=== PATIENT | female | born 1975 | race Caucasian/White ===

== ENCOUNTER 2023-03-05 15:25 | Emergency (ER) | payer BC, SELFPAY ==
--- NOTE | ~2023-03-05 | US_ITS ---
EXAMINATION: US right upper quadrant DATE: 03/05/2023 16:31 INDICATION: N/V, epigastric pain TECHNIQUE: Multiple grayscale and Doppler ultrasound images of the right upper quadrant were obtained . COMPARISON: None available. FINDINGS: The visualized portions of the pancreas are normal. The liver is normal size with increased echogenicity and normal echotexture. No surface nodularity. Normal hepatopetal flow in the main port al vein. The gallbladder is normal with no abnormal wall thickening, pericholecystic fluid or stones. The common bile duct measures 4 mm. There was no sonographic Metcalf sign. IMPRESSION: Echogenic liver, most commonly due to steatosis but also can be seen with hepatitis and fibrosis. Reviewed, dictated and finalized at location K. IMPRESSION: Echogenic liver, most commonly due to steatosis but also can be seen with hepat itis and fibrosis.
--- NOTE | ~2023-03-05 | CT_ITS ---
EXAMINATION: CT abdomen pelvis w con DATE: 03/05/2023 18:15 INDICATION: epigastric pain TECHNIQUE: Computed tomography (CT) of the abdomen and pelvis was performed with 100 mL Omnipaque-350 intravenous contrast. Automated exposure control and iterative reconstruction technique were employe d. The dose-length product was 1566.58 mGy-cm. COMPARISON: None. FINDINGS: Lower thorax: Unremarkable Liver: Normal. Biliary/Gallbladder: The gallbladder is distended. No wall thickening or pericholecystic fluid. Mild fat stranding at the gallbladder fossa, adjacent to the gallbladder neck. Gallstone at the gallbladde r neck. No bile duct dilation. Pancreas: No mass or duct dilation. Spleen: Normal. Adrenals:No mass. Kidneys: No mass, stone, or hydronephrosis. GI tract: Mild distal esophageal and antral wall edema. No small or large bowel dilation. Normal appe ndix. Mild diverticulosis without diverticulitis. Mesentery/Peritoneum: No ascites, mass, or free air. Retroperitoneum: No mass. Pelvis: Pelvic organs are within normal limits. Soft Tissues: Soft tissues and body wall unremarkable. Bones: No acute osseous finding. IMPRESSION: Esophagitis/gastritis. Gallbladder hydrops with cholelithiasis and mild inflammatory change surroundi ng the gallbladder neck. Reviewed, dictated and finalized at location K. IMPRESSION: Esophagitis/gastritis. Gallbladder hydrops with cholelithiasis and mild inflamm atory change surrounding the gallbladder neck.
[2023-03-05 15:27] VITALS: BP 150/75; PULSE 79; RESP 17; TEMP 36.7; O2SAT 99
--- NOTE | 2023-03-05 15:47 | PC.NURSE ---
pt unable to provide urine sample at this time. pt declining straight cath.
[2023-03-05 15:55] LABS: Basophils Percent Auto 0.3 % (0.2-1.2); Eosinophils Absolute Auto 0.1 K/mm3 (0-0.3); Eosinophils Percent Auto 0.5 % (0-4.4); Hematocrit 39.5 % (37.0-47.0); Hemoglobin 13.4 g/dL (12.0-15.0); Immature Granulocyte Absolute 0.02 K/mm3 (0.00-0.031); Immature Granulocyte Percent A 0.2 % (0-0.5); Lymphocytes Percent Auto 13.4 % (18.3-44.2); Mean Corpuscular HGB Conc 33.9 g/dl (32-36); Mean Corpuscular Hemoglobin 30.9 pg (26-34); Mean Corpuscular Volume 91.2 fl (80-100); Mean Platelet Volume 10.7 fl (7.4-10.4); Monocytes Absolute Auto 0.8 K/mm3 (0.1-0.6); Monocytes Percent Auto 7.9 % (2.6-8.5); Neutrophils Absolute Auto 7.6 K/mm3 (1.3-6.7); Neutrophils Percent Auto 77.7 % (45.5-73.1); Platelet Count Result 195 k/mm3 (150-375); Red Blood Count 4.33 M/mm3 (4.2-5.4); Red Cell Distribution Width 13.2 % (11.5-14.5); White Blood Count 9.7 K/mm3 (4.5-10.0)
[2023-03-05 16:03] LABS: Alanine Aminotransferase 111 U/L (6-35); Albumin Level 4.4 g/dL (3.5-5.1); Alkaline Phosphatase 59 U/L (38-126); Anion Gap 6 mmol/L (8-16); Aspartate Amino Transferase 79 U/L (14-36); Bilirubin,Total 0.5 mg/dL (0.2-1.3); Blood Urea Nitrogen 14 mg/dL (7-17); Calcium 9.5 mg/dL (8.4-10.2); Carbon Dioxide 34 mmol/L (22-30); Chloride 98 mmol/L (98-107); Estimated CRCL calculation 104 ml/min; Estimated Glomerular Filt Rate > 60; Glucose 115 mg/dL (65-110); Lipase 69 U/L (23-300); Sodium 138 mmol/L (137-145)
--- NOTE | 2023-03-05 16:05 | ECG_ITS ---
Measurements Intervals [place] Rate: 65 P: 34 RI: 181 QRS: 28 QRSD: 141 T: -4 QT: 435 QTc: 453 Interpretive Statements SINUS RHYTHM RIGHT BUNDLE BRANCH BLOCK LOW-VOLTAGE QRS IN PRECORDIAL LEADS ABNORMAL ECG NO PREVIOUS ECG AVAILABLE FOR COMPARISON Electronically Signed On 03-05-2023 17:22:22 CDT by Jorge Sepulveda M.D.
--- NOTE | 2023-03-05 16:08 | ED.GENADULT ---
HPI - General Adult General Chief complaint: Nausea/Vomiting/Diarrhea Stated complaint: epigastric pain/vomiting Time Seen by Provider: 03/05/23 15:37 Source: patient Mode of arrival: ambulatory Limitations: no limitations History of Present Illness HPI narrative: This is a 47-year-old female who presents to the ED with chief complaint of epigastric pain and an/B beginning last night around midnight. She reports that she had pizza for dinner and did okay with this. Later on she woke up with burning pain in her abdomen and had multiple episodes of emesis that followed. States she is still somewhat nauseous. Reports the pain is 6 out of 10 right now. Describes it as a burning pain that radiates from the middle abdomen superiorly. Reports some associated back pain as well. Denies fevers, chills, urinary symptoms, shortness of breath, exertional component. Related Data Allergies Allergy/AdvReac Type Severity Reaction Status Date / Time No Known Allergies Allergy Unverified 02/13/20 09:41 Review of Systems Review of Systems: CONSTITUTIONAL: Denies fever, chills, or sweats. EYES: Denies visual changes, redness, or discharge. ENT: Denies rhinorrhea, congestion, sore throat, or otalgia. CARDIOVASCULAR: Denies chest pain, palpitations, or edema. RESPIRATORY: Denies cough or dyspnea. GASTROINTESTINAL: See HPI GENITOURINARY: Denies dysuria or hematuria. SKIN: Denies rash or itching. MUSCULOSKELETAL: Denies back pain, joint pain, or myalgia. NEUROLOGIC: Denies headache, numbness, dizziness, or weakness. PSYCHIATRIC: Denies anxiety or depression. [facility] Family History Family History (Updated 04/21/16 @ 23:21 by DOCTOR UNKNOWN) Mother Family history of malignant neoplasm of breast in first degree relative Father Family history of heart disease in male family member before age 55 Sibling Patient's sister is in good health Social History Social History Smoking status: Never smoker Second hand tobacco smoke exposure: No Alcohol intake: current Exam Narrative: GENERAL: Well-appearing, well-nourished, and in no acute distress. HEAD: Normocephalic, atraumatic. EYES: PERRLA and EOMI. ENT: Nares clear, no rhinorrhea or epistaxis. Mucous membranes moist. Oropharynx without tonsillar hypertrophy exudate or other lesions. NECK: Supple. No adenopathy or masses. CHEST: No respiratory distress. Clear to auscultation. No wheezes rales or rhonchi HEART: Regular rate and rhythm. No murmur heard. Normal peripheral pulses. ABDOMEN: Mild epigastric tenderness. Negative Metcalf sign and McBurney point. No guarding or rebound. Soft, otherwise nontender, nondistended, normal active bowel sounds. MSK: Normal range of motion. No edema. SKIN: Warm, dry, no rash. NEURO: Alert and oriented x3. No focal deficits. PSYCH: Normal mood and affect. Course Course Emergency Course: Reevaluation 172: Feels mild relief of pain after GI cocktail but states she still has a lot of pain. Reevaluation 184: She is sleeping in the bed. Feeling better now. Agreeable for discharge home with follow-up with Dr. Pascual Vital Signs Vital signs: Vital Signs Temperature 98.0 F 03/05/23 15:27 Pulse Rate 79 03/05/23 15:27 Respiratory Rate 17 03/05/23 15:27 Blood Pressure 150/75 H 03/05/23 15:27 Pulse Oximetry 99 03/05/23 15:27 Oxygen Delivery Room Air 03/05/23 15:27 Temperature 98.0 F 03/05/23 15:27 Pulse Rate 79 03/05/23 15:27 Respiratory Rate 17 03/05/23 15:27 Blood Pressure 150/75 H 03/05/23 15:27 Pulse Oximetry 99 03/05/23 15:27 Oxygen Delivery Room Air 03/05/23 15:27 Medical Decision Making [facility] Narrative Medical decision making narrative: This is a 47-year-old female who presents to the ED with chief complaint of epigastric pain and vomiting beginning last night. Vitals are stable. Afebrile. Exam shows mild epigastric tenderness. initial lab work is largely unremarkable. Has
[2023-03-05 16:45] LABS: Troponin I < 0.012 ng/mL (0.000-0.034)
[2023-03-05] MEDS: ONDANSETRON INJ 4 MG/2 ML VIAL IV PUSH (16:48)
[2023-03-05] MEDS: BELLADONNA ALK/PHENOB ELIX 10 ML, MAG HYDROX/ALUMINUM HYD/SIMETH 30 ML, LIDOCAINE HCL 2... PO (16:49)
[2023-03-05] MEDS: SODIUM CHLORIDE 0.9% IV 1,000 ML 999 ML IV CONT (16:49)
[2023-03-05] MEDS: HYDROmorphone HCL INJ (*CRX) 1 MG/ML SYR 0.5 MG IV PUSH (17:32)
[2023-03-05 17:34] VITALS: BP 134/55; PULSE 68; RESP 18; O2SAT 99
--- NOTE | 2023-03-05 18:34 | PC.NURSE ---
pt still unable to urinate at this time. pt states she is not willing to try. pt refusing straight cath.
[2023-03-05 19:15] VITALS: BP 132/61; PULSE 78; RESP 18; O2SAT 99
== END 2023-03-05 19:18 | disposition home or self-care (01) ==
PROVIDERS: Emergency Medicine; Emergency Provider Physician Assistant; PCP Nurse Practitioner Family
DX: K29.70 Gastritis, unspecified, without bleeding (principal); K82.1 Hydrops of gallbladder; I45.10 Unspecified right bundle-branch block; R93.2 Abnormal findings on diagnostic imaging of liver and biliary tract; K80.20 Calculus of gallbladder without cholecystitis without obstruction
CPT/HCPCS: 36415; 74177; 76705; 80053; 83690; 84484; 85025; 93005; 96361; 96374; 96375; 99284; A9270; J1170; J2405; J7030; Q9967

== ENCOUNTER 2023-03-14 13:55 | Outpatient (CLI) | payer BC, SELFPAY ==
[2023-03-14 14:42] LABS: Alanine Aminotransferase 42 U/L (6-35); Albumin Level 4.4 g/dL (3.5-5.1); Alkaline Phosphatase 88 U/L (38-126); Amylase 51 U/L (30-110); Aspartate Amino Transferase 28 U/L (14-36); Bilirubin,Total 0.5 mg/dL (0.2-1.3)
== END 2023-03-14 13:56 | disposition home or self-care (01) ==
LOC: ANHSURGERY 13:58
PROVIDERS: PCP Nurse Practitioner Family; Visit Provider Surgery
DX: K80.10 Calculus of gallbladder with chronic cholecystitis without obstruction (principal); Z01.818 Encounter for other preprocedural examination
CPT/HCPCS: 36415; 80076; 82150; 86850; 86900; 86901

== ENCOUNTER 2023-03-19 16:40 | Observation (INO) | payer BC, SELFPAY ==
[2023-03-14 09:24] VITALS: BMI 36.9
--- NOTE | 2023-03-14 09:28 | PC.NURSE ---
Report to the Outpatient Waiting Room, entrance under the green pavilion located off [facility], at time 11:00 on date 03/19/23. Planned Procedure Time: 1:00. Time changes happen often and if your time is changed the preop area will call you the afternoon before. - You and your visitor will be asked to self-screen and do not enter if you have any COVID symptoms. - A mask is optional within the hospital at this time. Patients may have clear liquids (water, carbonated beverages, clear teas, apple juice) until 3 hours prior to surgery (10:00) with a maximum of 20 ounces. - No food from midnight until time of surgery Take the following medications with a SIP of water the morning of surgery: WELLBUTRIN, CELEXA, ANTIBIOTIC (IF STILL TAKING) DO NOT STOP ANY OF YOUR OTHER PRESCRIPTION MEDICATIONS PRIOR TO SURGERY EXCEPT THE FOLLOWING Medications to discontinue per physician: VITAMINS/SUPPLEMENTS Date to take last dose: 03/15/23 Please no make-up, nail estonian, hairspray, perfume, deodorant, or body powder the day of surgery. No jewelry (including any body piercings) or valuables the day of surgery, leave them at home. Please take a shower or bath the night before, or the morning of, surgery with an antibacterial soap (HIBICLENS). Wear comfortable, loose fitting clothing. - Jewelry must be removed prior to entering the operating room. Rings and piercings that are not removed may be cut off. - The hospital will not accept responsibility for valuables. - Please leave all valuables, including medications, at home the day of surgery. If you are going home after surgery, a licensed stake driver must drive you home. - NO public transportation without another adult if you receive anesthesia. - We recommend that an adult stay with you for 24 hours following discharge. - We also recommend that you do not drive, make important decision, drink alcoholic beverages, or take any drugs that were not prescribed by your health care provider for at least 24 hours after your discharge time. Follow any additional instructions given to you from your surgeon. If you or anyone in your household have experienced Covid symptoms in the past week, please notify your surgeon or the nurse liaison at the phone number below for possible testing. Telephone instructions given to PT - JOSÉ VERA and asked if any additional questions and then verbalized understanding. Patient advised to call surgeon office or pre surgery nurse liaison [phone] if any additional questions.
[2023-03-19] VITALS (12 sets, daily range): BP systolic 110–132; BP diastolic 54–87; PULSE 81–111; RESP 12–23; TEMP 36.1–36.8; O2SAT 94–100; BMI 36.8; BMI 38.0
--- NOTE | ~2023-03-19 | NM_ITS ---
EXAMINATION: NM hepatobiliary wo pharm DATE: 03/20/2023 13:47 INDICATION: Assess for bile leak post cholecystectomy one day prior COMPARISON: None. TECHNIQUE: 4.7 mCi Tc-99m mebrofenin (Choletec) was administered intravenously. Scintigraphic images of the abdomen were obtained for one hour. FINDINGS: There is normal clearance of radiotracer from the blood pool. There is homogeneous tracer u ptake by the liver. Activity progresses through the common bile duct with activity first seen in the duodenum at 20 minutes. There is progressive accumulation of activity in the small bowel through the remainder of the study. No evident bilaterally. IMPRESSION: 1. Normal postcholecystectomy hepatobiliary study. No bile leak. Reviewed, dictated and finalized at location A.
--- NOTE | ~2023-03-19 | XR_ITS ---
EXAMINATION: XR cholangiogram surg 1st inj DATE: 03/19/2023 14:10 CDT INDICATION: IOC . TECHNIQUE: 2 cine clips comprised of 87 and 100 images of the right upper quadrant were obtained duri ng intraoperative cholangiography performed by the surgeon. A wet read was not requested by the surge on at the time of surgery. Fluoroscopy exposure time was 45.4 seconds. Air Kerma 26.42 mGy. DAP 0.468 87 mGym2. COMPARISON: CT abdomen and pelvis 03/05/2023 FINDINGS: Contrast extravasates after injection, without definite filling of the biliary system or duodenum. IMPRESSION: Fluoroscopic documentation of intraoperative cholangiography. Please refer to the operative note for complete procedural details . Reviewed, dictated and finalized at location K. IMPRESSION: Fluoroscopic documentation of intraoperative cholangiography. Please refer to carlos mccullough operative note for complete procedural details .
[2023-03-19] MEDS: LACTATED RINGERS 1,000 ML 30 ML IV CONT ×3 (10:40→16:14)
[2023-03-19 10:43] LABS: Glucose Point of Care 113 mg/dl (65-105)
[2023-03-19] MEDS: ACETAMINOPHEN 500 MG TABLET 1000 MG PO (10:43)
[2023-03-19] MEDS: KETOROLAC 15 MG/ML VIAL (*BKC) IV PUSH (10:43)
--- NOTE | 2023-03-19 11:34 | WPDANESEPPF ---
Anes - Initial Pre Proc Eval Procedure: Operation Date: 03/19/23 12:00 Proposed Procedures p Laparoscopic Cholecystectomy, Possible Open - Jacob Otero MD Date/Time: 03/19/23 11:34 Surgeon: Jacob Otero MD Pre Op Diagnosis: chronic cholecystitis with stones Patient Data Age: 47 Gender: F Height: 1.68 m Weight: 103.6 kg Allergies Allergy/AdvReac Type Severity Reaction Status Date / Time No Known Allergies Allergy Verified 03/19/23 10:54 Home Medications Medication Instructions Recorded Confirmed Type bupropion HCl 300 mg 24 hr tablet, 300 mg PO QAM #90 tabs 10/22/19 03/14/23 Rx extended release citalopram 10 mg tablet 10 mg PO DAILY #90 tabs 10/22/19 03/14/23 Rx ondansetron 4 mg disintegrating 4 mg PO Q8H PRN nausea and 03/05/23 03/14/23 Rx tablet vomiting #10 tabs ergocalciferol (vitamin D2) 1,250 1,250 mcg PO 2XW 03/14/23 03/14/23 History mcg (50,000 unit) capsule lisinopril 20 1 tablet PO DAILY 03/14/23 03/14/23 History mg-hydrochlorothiazide 25 mg tablet omeprazole 20 mg capsule,delayed 20 mg PO HS 03/14/23 03/14/23 History release rosuvastatin 20 mg tablet 20 mg PO HS 03/14/23 03/14/23 History tirzepatide 7.5 mg/0.5 mL 7.5 mg subcut WEEKLY 03/14/23 03/14/23 History subcutaneous pen injector (Mounjaro) Laboratory Tests 03/19/23 10:39 POC Capillary Glucose 113 H mg/dl (65-105) Patient hx anesthesia problems: none Family hx anesthesia problems: none Results Review: All pre-operative results and documents have been reviewed as part of the pre-operative evaluation. [facility] Family History Family History Mother Family history of malignant neoplasm of breast in first degree relative Father Family history of heart disease in male family member before age 55 Sibling Patient's sister is in good health Social History Social History Smoking status: Never smoker Second hand tobacco smoke exposure: No Alcohol intake: current Alcohol use details: VERY RARE Substance use: never Substance use type: does not use Living arrangements: with family Spiritual care concerns: No Anes - Eval Final PreProcedure Day of Procedure 03/19/23 11:34 Patient weight: obese Heart: regular rate and rhythm Lungs: clear to auscultation Airway: Mallampati scale class II Neurological: alert and oriented Last oral intake: >/= 8 hours ASA classification: III Emergent: no Anesthetic plan: proceed Anesthesia type and monitoring: general ETT and standard monitoring Results Review: All pre-operative results and documents have been reviewed as part of the pre-operative evaluation. Informed Consent: The patient's anesthetic plan and its attendant risks and benefits were discussed with the patient/family/POA. Questions were solicited and answers provided to the satisfaction of the patient/family/POA.
--- NOTE | 2023-03-19 11:46 | WPDHPUPDATE1 ---
History and Physical Update Update Date/Time: 03/19/23 11:46 History and Physical has been reviewed, including an updated exam of the patient. There are NO changes in the patient's condition. Risks, benefits, and alternatives have been discussed and questions answered. Patient agrees to proceed with procedure.
[2023-03-19] MEDS: ceFAZolin 2 GM/D5W 50 ML 2 GM/50 ML BAG IVPB (11:55)
[2023-03-19] MEDS: LIDO 1%/EPINEPHRINE 1:100,000 50 ML VIAL 20 ML INFILTRATE (12:27)
[2023-03-19] MEDS: BUPivacaine HCL 0.5% 10 ML AMP 20 ML INFILTRATE (12:28)
[2023-03-19 15:28] LABS: Glucose Point of Care 155 mg/dl (65-105)
--- NOTE | 2023-03-19 15:37 | P.OPB_ITS ---
Procedure Note - Brief Procedure Note - Brief Date of procedure: 03/19/23 Acute cholecystitis secondary to cholelithiasis Post-op diagnosis: Same Procedure performed: Subtotal nonfenestrated laparoscopic cholecystectomy with attempted intra operative cholangiogram. Surgeon: Jacob Otero MD Mass Spectroscopist: Sai GORDON Anesthesia: GETA Findings: Severely thickened and intensely inflamed gallbladder enveloped in omentum which was very friable. Large single gallstone impacted within the neck of the gallbladder. Gallbladder contents was purulent. Implants: None Drains: Yes (ABRAHAM drain right upper quadrant) Packing: No Pathology: Yes (Gallbladder and gallstones sent to pathology) Complications: No immediate complications Condition: Stable Disposition: PACU
[2023-03-19] MEDS: fentaNYL CITRATE INJ (*CRX) 100 MCG/2 ML VIAL 25 MCG IV PUSH ×2 (16:17→16:34)
[2023-03-19] MEDS: ONDANSETRON INJ 4 MG/2 ML VIAL IV PUSH ×2 (16:21→17:43)
[2023-03-19] MEDS: HYDROmorphone HCL INJ (*CRX) 1 MG/ML SYR IV PUSH ×2 (17:43→22:27)
[2023-03-19] MEDS: LACTATED RINGERS 1,000 ML 100 ML IV CONT (17:44)
--- NOTE | 2023-03-19 18:12 | PC.NURSE ---
1700 This patient, Radha Tsang, was admitted to 2 Medical Room 261-01. Patient/family oriented to hospital policies and general routines including ID bracelet, bed and alarms, visiting hours, pain management, procedures, bathroom and other care routines, personal items, smoking policy, room service/diet, and visiting hours. Information on how to activate the Rapid Response Team has been discussed. Patient/Family are encouraged to report perceived risks to care and to ask questions if they do not understand what they are told or what they should do.
[2023-03-19] MEDS: PANTOPRAZOLE 40 MG TABLET PO (20:29)
[2023-03-19] MEDS: ROSUVASTATIN 10 MG TABLET 20 MG PO (20:29)
[2023-03-20] MEDS: ONDANSETRON INJ 4 MG/2 ML VIAL IV PUSH ×3 (00:12→17:24)
[2023-03-20 05:44] LABS: Basophils Percent Auto 0.3 % (0.2-1.2); Eosinophils Percent Auto 0.1 % (0-4.4); Hematocrit 35.5 % (37.0-47.0); Hemoglobin 11.7 g/dL (12.0-15.0); Immature Granulocyte Percent A 0.7 % (0-0.5); Mean Corpuscular Hemoglobin 30.4 pg (26-34); Mean Corpuscular Volume 92.2 fl (80-100); Mean Platelet Volume 10.5 fl (7.4-10.4); Monocytes Absolute Auto 0.9 K/mm3 (0.1-0.6); Neutrophils Absolute Auto 12.3 K/mm3 (1.3-6.7); Neutrophils Percent Auto 85.9 % (45.5-73.1); Platelet Count Result 258 k/mm3 (150-375); Red Blood Count 3.85 M/mm3 (4.2-5.4); Red Cell Distribution Width 13.1 % (11.5-14.5); White Blood Count 14.3 K/mm3 (4.5-10.0)
[2023-03-20 05:52] LABS: Alanine Aminotransferase 35 U/L (6-35); Albumin Level 3.7 g/dL (3.5-5.1); Alkaline Phosphatase 57 U/L (38-126); Anion Gap 6 mmol/L (8-16); Aspartate Amino Transferase 29 U/L (14-36); Bilirubin,Total 0.5 mg/dL (0.2-1.3); Blood Urea Nitrogen 20 mg/dL (7-17); Calcium 9.3 mg/dL (8.4-10.2); Carbon Dioxide 29 mmol/L (22-30); Chloride 99 mmol/L (98-107); Estimated CRCL calculation 104 ml/min; Estimated Glomerular Filt Rate > 60; Glucose 120 mg/dL (65-110); Sodium 134 mmol/L (137-145)
[2023-03-20 06:00] VITALS: BP 121/60; PULSE 93; RESP 18; TEMP 37.1; O2SAT 97
[2023-03-20 06:02] VITALS: BP 121/60; PULSE 93; RESP 18; TEMP 37.1; O2SAT 97
[2023-03-20] MEDS: HYDROmorphone HCL INJ (*CRX) 1 MG/ML SYR IV PUSH ×3 (06:21→23:20)
[2023-03-20] MEDS: PANTOPRAZOLE 40 MG TABLET PO ×2 (09:12→20:16)
[2023-03-20] MEDS: buPROPion HCL XL (24 HR) 150 MG TABCR 300 MG PO (09:12)
[2023-03-20] MEDS: CITALOPRAM HYDROBROMIDE 10 MG TABLET PO (09:13)
[2023-03-20] MEDS: ERGOCALCIFEROL 50,000 UNITS CAPSULE 50000 UNITS PO (09:13)
[2023-03-20] MEDS: lisinopriL 20 MG TABLET PO (09:13)
[2023-03-20] MEDS: ENOXAPARIN 40 MG/0.4 ML SYRINGE SUB-Q (09:14)
[2023-03-20] MEDS: hydroCHLOROthiazide 25 MG TABLET PO (09:23)
[2023-03-20] MEDS: LACTATED RINGERS 1,000 ML 100 ML IV CONT ×2 (09:23→18:04)
--- NOTE | 2023-03-20 09:43 | P.PNAN_ITS ---
Anes - Prog Note Post-Op Date/Time: 03/20/23 09:43 Cardiovascular status: normal Respiratory status: normal Airway patency: baseline Mental status: baseline Post-Op hydration status: normal Vital Signs: Last Vital Signs Temp 98.7 F 03/20/23 06:02 Pulse 93 03/20/23 06:02 Resp 18 03/20/23 06:02 BP 121/60 03/20/23 06:02 Pulse Ox 97 03/20/23 06:02 O2 Del Method Room Air 03/19/23 20:00 O2 Flow Rate 6 03/19/23 15:35 Pain Score (VAS): 2 I/O: Intake & Output 03/19/23 03/20/23 03/20/23 23:59 07:59 15:59 Intake Total 950 1490 Output Total 25 200 Balance 925 1490 -200 Laboratory Tests 03/20/23 04:54 03/20/23 04:54 03/19/23 03/19/23 03/20/23 10:39 15:25 04:54 WBC 14.3 H RBC 3.85 L Hgb 11.7 L Hct 35.5 L MCV 92.2 MCH 30.4 MCHC 33.0 RDW 13.1 Plt Count 258 MPV 10.5 H Immature Gran % (Auto) 0.7 H Neut % (Auto) 85.9 H Lymph % (Auto) 7.0 L [place] % (Auto) 6.0 Eos % (Auto) 0.1 Baso % (Auto) 0.3 Lymph # (Auto) 1.00 [place] # (Auto) 0.9 H Eos # (Auto) 0.0 Baso # (Auto) 0.0 Abs Immat Gran (auto) 0.10 H Absolute Neuts (auto) 12.3 H Absolute Nucleated RBC 0.0 Nucleated RBC % 0.0 Sodium 134 L Potassium 4.0 Chloride 99 Carbon Dioxide 29 Anion Gap 6 L BUN 20 H Creatinine 0.70 Estim Creat Clear Calc 104 Estimated GFR > 60 Glucose 120 H POC Capillary Glucose 113 H 155 H Calcium 9.3 Total Bilirubin 0.5 AST 29 ALT 35 Alkaline Phosphatase 57 Total Protein 6.0 L Albumin 3.7 Post-procedural complaints: nausea Patient Feedback: Patient satisfied with anesthetic care.
[2023-03-20 09:50] VITALS: BP 113/60; PULSE 88; RESP 16; TEMP 36.4; O2SAT 94
--- NOTE | 2023-03-20 10:11 | PM.PNGS ---
Progress Note: A&P Assessment and Plan (1) Acute cholecystitis due to biliary calculus: Code(s): K80.00 - Calculus of gallbladder with acute cholecystitis without obstruction Status: Acute Assessment and Plan: Postop day 1, status post difficult laparoscopic partial nonfenestrated cholecystectomy with attempted intraoperative cholangiogram. Patient is still having some nausea today and has not progressed on fluids. No fever or tachycardia. Drain has some bile tinged fluid so she likely had this small bile leak. We will get a HIDA scan today to evaluate for bile leak. Hopefully the bile leak will stop the next day or 2 without need for ERCP and stent placement. Continue supportive management. Liver enzymes are all normal which is reassuring. Subjective Subjective Date/Time Seen: 03/20/23 10:11 Post Op day: 1 ( Status post subtotal nonfenestrated laparoscopic cholecystectomy with attempted intraoperative cholangiogram) Interval history: POatient this morning has been having some nausea. She is not taking much p.o. intake at. Did do some Dilaudid overnight. No fever. White blood count 54625. Liver enzymes all normal today. Total bilirubin normal. Exam GI: Other: Abdomen is soft and nondistended. Expected mild tenderness to the palpation around the port sites. No redness or drainage or hematoma. Right upper quadrant ABRAHAM drain about 40cc of bile tinged serous fluid. The fluid is not pure bile. Objective Data Vital Signs Vital Signs: Vital Signs - 24 hr 03/19/23 15:21 03/19/23 15:35 03/19/23 15:50 Temperature 36.3 C L 36.8 C Pulse Rate 111 H 90 87 Respiratory Rate 16 18 23 H Blood Pressure 132/65 127/65 112/65 Pulse Oximetry 100 100 100 Oxygen Delivery Simple Face Mask Simple Face Mask Room Air Oxygen Flow Rate 6 6 03/19/23 16:05 03/19/23 16:20 03/19/23 16:35 Temperature Pulse Rate 85 85 86 Respiratory Rate 16 12 16 Blood Pressure 115/61 110/58 L 113/64 Pulse Oximetry 95 95 94 Oxygen Delivery Room Air Room Air Room Air Oxygen Flow Rate 03/19/23 17:00 03/19/23 17:15 03/19/23 17:45 Temperature 36.6 C 36.3 C L 36.4 C Pulse Rate 85 81 85 Respiratory Rate 16 18 18 Blood Pressure 119/60 116/54 L 122/61 Pulse Oximetry 95 97 97 Oxygen Delivery Oxygen Flow Rate 03/19/23 18:45 03/19/23 20:02 03/19/23 20:00 Temperature 36.2 C L 36.3 C L Pulse Rate 83 81 Respiratory Rate 18 18 Blood Pressure 121/64 128/61 Pulse Oximetry 97 100 Oxygen Delivery Room Air Oxygen Flow Rate 03/20/23 06:00 03/20/23 06:02 03/20/23 09:50 Temperature 37.1 C 37.1 C 36.4 C Pulse Rate 93 93 88 Respiratory Rate 18 18 16 Blood Pressure 121/60 121/60 113/60 Pulse Oximetry 97 97 94 Oxygen Delivery Oxygen Flow Rate Intake/Output Intake/Output: Intake & Output 03/17/23 03/18/23 03/19/23 03/20/23 23:59 23:59 23:59 23:59 Intake Total 950 1490 Output Total 25 200 Balance 925 1290 Meds/Results Medications: Active Medications Generic Name Dose Route Start Last Admin Trade Name Freq PRN Reason Stop Dose Admin Acetaminophen 1,000 mg 03/19/23 15:34 Acetaminophen 500 Mg Tablet PO Q6H PRN Mild Pain (1-3) or Fever Bupropion HCl 300 mg 03/20/23 09:00 03/20/23 09:12 Bupropion Hcl Xl (24 Hr) 150 Mg Tabcr PO 300 mg QAM JASON Administration Citalopram Hydrobromide 10 mg 03/20/23 09:00 03/20/23 09:13 Citalopram Hydrobromide 10 Mg Tablet PO 10 mg DAILY JASON Administration Enoxaparin Sodium 40 mg 03/20/23 09:00 03/20/23 09:14 Enoxaparin 40 Mg/0.4 Ml Syringe SUB-Q 40 mg DAILY JASON Administration Ergocalciferol 50,000 units 03/20/23 09:00 03/20/23 09:13 Ergocalciferol 50,000 Units Capsule PO 50,000 units [facility]@0900 JASON Administration Hydrochlorothiazide 25 mg 03/20/23 09:00 03/20/23 09:23 Hydrochlorothiazide 25 Mg Tablet PO 25 mg DAILY JASON Administration Hydromorphone HCl 1 mg 03/19/23
--- NOTE | 2023-03-20 13:27 | W.PM.PROC2 ---
Procedure Note - Detailed Date of Procedure 03/20/23 Pre-op Diagnosis Chronic cholecystitis with stones Post-op Diagnosis Other ( Acute cholecystitis secondary to cholelithiasis) Procedure Performed Laparoscopic subtotal nonfenestrated cholecystectomy with attempted intraoperative cholangiogram . Surgeon Jacob Otero MD Anesthesia General Indications Patient is a 37-year-old white female who initially went to the emergency room with severe right upper quadrant abdominal pain and was diagnosed with cholecystitis due to gallstones. Imaging at that time documented a single gallstone within the gallbladder. Presents for primary care physician's office after being discharged from the emergency room and was then sent to my office for evaluation. She was having right upper quadrant abdominal pain which is improving and did not appear to be toxic and so she remained on oral antibiotic and low-fat diet at home. He has been over 2 weeks since her acute episode she presents now for an elective laparoscopic cholecystectomy. Findings Findings at surgery included a very inflamed gallbladder due to impacted gallstone in the neck of the gallbladder. Omentum was densely adherent to the gallbladder with inflammatory adhesions. The infundibular gallbladder was very inflamed and it was difficult to identify the ductal structures. For this reason a partial non fenestrated cholecystectomy was performed. Description of Procedure After informed consent was obtained patient brought to the operating room she was placed supine position and general endotracheal anesthesia was administered. The abdomen was then prepped and draped usual sterile fashion. A time-out was then performed correctly identifying the patient as well as procedure to be performed. She was given perioperative IV antibiotics. I into the abdomen left upper quadrant utilized a 5mm Optiview port. Once inside the abdomen insufflated to adequate pneumoperitoneum of 15mmHg of CO2. There were no adhesions in the area the umbilicus and so I placed a 5mm periumbilical trocar port as well as a 10mm epigastric trocar port and 2 right lateral subcostal 5mm trocar ports all under direct visualization. Initially could not even see the gallbladder as there was omentum densely adherent with inflammatory adhesions to the gallbladder. Utilizing laparoscopic instruments I proceeded to strip down the omentum off of the gallbladder this revealed the gallbladder wall which was acutely inflamed and thickened. It was so thickened that I could not really even grasp the gallbladder with laparoscopic grasper initially. During relation of the gallbladder a hole was made the gallbladder in the dome and purulent bile drain out the gallbladder. Once the gallbladder was decompressed I was able to hold the gallbladder laparoscopic grasper at the dome and elevate the gallbladder up over the right half liver. I was then able to continue bluntly stripping the omental adhesions off of the gallbladder. Once I had the fibula gallbladder exposed I continue my dissection trying to strip down the visceral peritoneum off of the area but due to the intense inflammation and the impacted gallstone at the neck of the gallbladder I was unable to perform dissection safely to achieved the critical view. At this point after dissecting about 20minutes without making a progress I chose to proceed with performing a laparoscopic subtotal cholecystectomy. On the infundibular gallbladder I then incised the wall the gallbladder with with electrocautery until I was into the lumen of the gallbladder. This was confirmed with drainage of purulent bile. I then extended my dissection laterally to the liver bed on each side. When I did this I came up to the cystic artery which was clipped multiple times and divided with electrocautery. I then completed to open the gallbladder on the anterior wall vertically and then a large gallstone which were all gallbladder was
[2023-03-20] MEDS: oxyCODONE HCL (*CRX) 5 MG TAB IR PO (13:38)
[2023-03-20 14:13] VITALS: BP 119/56; PULSE 88; RESP 16; TEMP 36.8; O2SAT 97
[2023-03-20 18:40] VITALS: BP 122/60; PULSE 86; RESP 16; TEMP 36.9; O2SAT 96
[2023-03-20 19:56] VITALS: BP 106/58; PULSE 79; RESP 20; TEMP 36.6; O2SAT 94
[2023-03-20] MEDS: ROSUVASTATIN 10 MG TABLET 20 MG PO (20:16)
[2023-03-21] MEDS: oxyCODONE HCL (*CRX) 5 MG TAB IR PO ×2 (04:37→08:34)
[2023-03-21 05:19] VITALS: BP 96/53; PULSE 75; RESP 20; TEMP 36.1; O2SAT 94
[2023-03-21 08:24] LABS: Glucose Point of Care 115 mg/dl (65-105)
[2023-03-21] MEDS: buPROPion HCL XL (24 HR) 150 MG TABCR 300 MG PO (08:30)
[2023-03-21] MEDS: lisinopriL 20 MG TABLET PO (08:33)
[2023-03-21] MEDS: CITALOPRAM HYDROBROMIDE 10 MG TABLET PO (08:33)
[2023-03-21] MEDS: hydroCHLOROthiazide 25 MG TABLET PO (08:33)
[2023-03-21] MEDS: PANTOPRAZOLE 40 MG TABLET PO (08:33)
[2023-03-21] MEDS: ENOXAPARIN 40 MG/0.4 ML SYRINGE SUB-Q (08:34)
--- NOTE | 2023-03-21 10:51 | PM.DS ---
DS: Admitting Diagnosis Discharge Date March 21, 2023 Admitting Diagnosis Chronic cholecystitis secondary to cholelithiasis DS: Discharge Diagnosis Discharge Diagnosis Plan Acute cholecystitis secondary to cholelithiasis DS: Summary Hospital Course Reason for hospitalization: Cholecystitis Hospital Course: Patient came to [facility] on March 19, 2023 for a elective laparoscopic cholecystectomy for chronic cholecystitis secondary to cholelithiasis. Intraoperatively she was found to have a very distended and thickened and acutely inflamed gallbladder with a large stone impacted within the neck of the gallbladder. She underwent a difficult but successful laparoscopic nonfenestrated partial cholecystectomy. A drain was left in place for a likely postoperative bile leak from the gallbladder remnant. Please see the operative note for details of the surgery. Postoperatively should course was uneventful recovery room she was transferred to the surgical floor for routine postoperative care. For the 1st 24hours after surgery she did not have much of an appetite. She did tolerate some clear liquids. She was able to get up in a month to the bathroom but was afebrile. White blood [place] 71700. Liver enzymes were normal. And on examination the incisions are healing well. There was slight low volume bile tinged drainage from the drain. I then obtained a HIDA scan which showed no evidence of a bile leak actively and quick passage of contrast into the duodenum from the common bile duct. She was then advanced to full liquid diet which she tolerated and then on the day of discharge she tolerated regular food without difficulty. She was feeling much better and was tolerating oxycodone for oral pain medications. She is not needing any IV pain medications. I checked drain of the discharge and still had a small amount of bile tinged fluid and so I elected to leave the drain in place at discharge. It will be removed as an outpatient. A postop day 2. She was discharged home in improved condition. Status at Discharge Functional status at discharge: independent ambulation Time Spent with Patient Time attestation: Total time spent providing and/or coordinating discharge services: Exam Const: General: cooperative, healthy appearing, comfortable and no acute distress Resp: Effort & Inspection: normal respiratory effort and able to speak in complete sentences Auscultation: clear to auscultation bilaterally Cardio: Rate: regular rate Rhythm: regular rhythm GI: Other: Abdomen soft and nondistended. Port site incisions are healing well without redness or drainage. Right upper quadrant ABRAHAM drain output is [id number] per day with small amount serous bile tinged fluid. Neuro: General: patient oriented x3 and moves all extremities Cranial nerves: Yes CN's II-XII intact bilaterally Speech: normal speech Gait exam (Neuro): Normal gait present Motor exam (neuro): 5/5 motor strength present throughout Sensory Exam: normal sensation Psych: Appearance: grossly normal and well kempt Mental Status: mental status grossly normal DS: Data Data Completed and Pending Completed studies during hospitalization: Pending at discharge 03/19/23 13:43 Surgical [PTH] Routine Labs on day of discharge: Labs from last 24 hours 03/21/23 08:18 POC Capillary Glucose 115 H Discharge Plan Discharge Attending physician on discharge: Jacob Oetro Discharging Clinician: Jacob Otero Anticipated Discharge Date/Time: 03/21/23 10:56 Patient Disposition: Home, Self-Care Activity: other - see discharge instructions Diet: regular Wound Care Instructions: follow printed instructions Discharge Instructions: Okay to discharge home today. No lifting more than 10 or 15lb for 2 weeks. Will need to sponge bath while drain is in place. Teach the patient drain care prior to discharge home today. Send patient home wit
== END 2023-03-21 11:54 | disposition home or self-care (01) ==
LOC: ANH2MED 16:43
PROVIDERS: Admitting Provider Surgery; PCP Nurse Practitioner Family; Visit Provider Surgery
PROC: 0FT44ZZ Resection of Gallbladder, Percutaneous Endoscopic Approach (ICD-10-PCS; CPT 47562; principal; 2023-03-19 12:00)
DX: K80.12 Calculus of gallbladder with acute and chronic cholecystitis without obstruction (principal); K66.0 Peritoneal adhesions (postprocedural) (postinfection); D72.829 Elevated white blood cell count, unspecified; E66.9 Obesity, unspecified; Z68.38 Body mass index [BMI] 38.0-38.9, adult; F10.90 Alcohol use, unspecified, uncomplicated; Z79.85 Long-term (current) use of injectable non-insulin antidiabetic drugs; Z79.899 Other long term (current) drug therapy
CPT/HCPCS: 47563; 36415; 74300; 78226; 80053; 80076; 82150; 82948; 85025; 86850; 86900; 86901; 88304; A9270; A9537; C1713; G0378; J0330; J0690; J1100; J1170; J1650; J1885; J2250; J2405; J2704; J2710; J3010; J7030; J7120

== ENCOUNTER 2023-10-22 10:02 | Emergency (ER) | payer BC, SELFPAY ==
[2023-10-22] VITALS (7 sets, daily range): BP systolic 107–127; BP diastolic 70–100; PULSE 66–89; RESP 13–20; TEMP 36.3; O2SAT 96–100
--- NOTE | ~2023-10-22 | CT_ITS ---
EXAMINATION: CT brain wo con DATE: 10/22/2023 13:00 INDICATION: Dizziness. TECHNIQUE: Computed tomography (CT) of the head was performed without intravenous contrast. The mA wa s adjusted according to patient size. Iterative reconstruction technique was employed. The dose-lengt h product was 681.00 mGy-cm. COMPARISON: None FINDINGS: There is no intracranial hemorrhage, acute infarction, or abnormal intracranial mass lesion . The ventricles are normal in size. The orbits are normal. The paranasal sinuses are clear. The mast oid air cells are normal. IMPRESSION: 1. Normal brain. Reviewed, dictated and finalized at location A. L ENGINE MECHANIC IMPRESSION: 1. Normal brain.
--- NOTE | 2023-10-22 10:42 | ECG_ITS ---
Measurements Intervals [place] Rate: 75 P: 34 WV: 166 QRS: 62 QRSD: 125 T: 17 QT: 413 QTc: 463 Interpretive Statements SINUS RHYTHM RIGHT BUNDLE BRANCH BLOCK ABNORMAL ECG COMPARED TO ECG 03/05/2023 17:02:00 NO SIGNIFICANT CHANGES Electronically Signed On 10-22-2023 11:57:40 [employer] MACHINE OPERATOR by Bryan Wheatley D.O.
--- NOTE | 2023-10-22 12:17 | ED.GENADULT ---
HPI - General Adult General Chief complaint: Dizziness <Aleida Ramesh January, RAILROAD FIRER - Last Filed: 10/22/23 12:31> Stated complaint: dizziness <Aleida Ramesh January, RAILROAD FIRER - Last Filed: 10/22/23 12:31> Time Seen by Provider: 10/22/23 14:26 <Aleida Ramesh January, RAILROAD FIRER - Last Filed: 10/22/23 12:31> Focused HPI: 1226 Radha Tsang is a 48 y/o female who presents with reports of having dizziness / headache since yesterday - she states that it started at around 1000 after she bent forward the room was spinning but then improved and went away. She states that the symptoms returned yesterday at around [id number] with dizziness/ headache / nausea she layed down and slept symptoms continued and when she got up this AM she states that she still feels light headed/ nauseated and when she walks she feels off balance- Headache 6/10 - denies double/blurry vision Denies any recent illnesses - felt hot and cold intermittently last night. GENERAL: Well-appearing, well-nourished, and in no acute distress. HEAD: Normocephalic, atraumatic. CHEST: Clear to auscultation. ?No respiratory distress. HEART: Regular rate and rhythm.? NEURO: ?Alert and oriented x3. Patient screened in triage and initial orders placed.? ?Additional care and disposition to be based upon?diagnostic testing and treatment. <Andrae Allison MD - Last Filed: 10/22/23 18:30> History of Present Illness HPI narrative: Focused HPI: 1226 Radha Tsang is a 48 y/o female who presents with reports of having dizziness / headache since yesterday - she states that it started at around 1000 after she bent forward the room was spinning but then improved and went away. She states that the symptoms returned yesterday at around [id number] with dizziness/ headache / nausea she layed down and slept symptoms continued and when she got up this AM she states that she still feels light headed/ nauseated and when she walks she feels off balance- Headache 6/10 - denies double/blurry vision Denies any recent illnesses - felt hot and cold intermittently last night. GENERAL: Well-appearing, well-nourished, and in no acute distress. HEAD: Normocephalic, atraumatic. CHEST: Clear to auscultation. ?No respiratory distress. HEART: Regular rate and rhythm.? NEURO: ?Alert and oriented x3. Patient screened in triage and initial orders placed.? ?Additional care and disposition to be based upon?diagnostic testing and treatment. <Aleida Arrington APRN - Last Filed: 10/22/23 12:31> A 48-year-old female presented the emergency department for evaluation of acute onset of dizziness that started yesterday. Patient states she bent over to her when she had onset of dizziness. Patient denies any associated numbness or weakness patient did have associated nausea without vomiting. Patient states that the symptoms persisted last night and through the day today. Patient was treated with some meclizine but did not feel complete improvement. <Andrae Allison MD - Last Filed: 10/22/23 18:30> Related Data Home medications: Home Medications Medication Instructions Recorded Confirmed ergocalciferol (vitamin D2) 1,250 1,250 mcg PO 2XW 03/14/23 03/14/23 mcg (50,000 unit) capsule lisinopril 20 1 tablet PO DAILY 03/14/23 03/14/23 mg-hydrochlorothiazide 25 mg tablet omeprazole 20 mg capsule,delayed 20 mg PO HS 03/14/23 03/14/23 release rosuvastatin 20 mg tablet 20 mg PO HS 03/14/23 03/14/23 tirzepatide 7.5 mg/0.5 mL 7.5 mg subcut WEEKLY 03/14/23 03/14/23 subcutaneous pen injector (Mounjaro) <Aleida Arrington RAILROAD FIRER - Last Filed: 10/22/23 12:31> Allergies/adverse reactions: Allergies Allergy/AdvReac Type Severity Reaction Status Date / Time No Known Allergies Allergy Verified 10/22/23 10:03 <Aleida Arrington RAILROAD FIRER - Last Filed: 10/22/23 12:31> Review of Systems Review of Systems: All systems reviewed & are unremarkable except as noted in HPI and below <Andrae Allison MD - Last Filed: 10/22/23 18:
[2023-10-22] MEDS: ONDANSETRON INJ 4 MG/2 ML VIAL IV PUSH (12:54)
[2023-10-22] MEDS: MECLIZINE HCL 25 MG TABLET PO (12:57)
[2023-10-22 13:00] LABS: Basophils Percent Auto 0.7 % (0.2-1.2); Eosinophils Absolute Auto 0.2 K/mm3 (0-0.3); Eosinophils Percent Auto 2.6 % (0-4.4); Hemoglobin 13.2 g/dL (12.0-15.0); Immature Granulocyte Absolute 0.02 K/mm3 (0.00-0.031); Immature Granulocyte Percent A 0.3 % (0-0.5); Lymphocytes Absolute Auto 1.56 K/mm3 (0.9-3.2); Lymphocytes Percent Auto 26.7 % (18.3-44.2); Mean Corpuscular Hemoglobin 31.4 pg (26-34); Mean Corpuscular Volume 95.2 fl (80-100); Mean Platelet Volume 10.6 fl (7.4-10.4); Monocytes Absolute Auto 0.3 K/mm3 (0.1-0.6); Monocytes Percent Auto 4.8 % (2.6-8.5); Neutrophils Absolute Auto 3.8 K/mm3 (1.3-6.7); Neutrophils Percent Auto 64.9 % (45.5-73.1); Platelet Count Result 169 k/mm3 (150-375); Red Cell Distribution Width 13.1 % (11.5-14.5); White Blood Count 5.9 K/mm3 (4.5-10.0)
[2023-10-22 13:01] LABS: Alanine Aminotransferase 18 U/L (6-35); Albumin Level 4.4 g/dL (3.5-5.1); Alkaline Phosphatase 58 U/L (38-126); Anion Gap 8 mmol/L (8-16); Aspartate Amino Transferase 21 U/L (14-36); Bilirubin,Total 0.6 mg/dL (0.2-1.3); Blood Urea Nitrogen 17 mg/dL (7-17); Calcium 9.6 mg/dL (8.4-10.2); Carbon Dioxide 26 mmol/L (22-30); Chloride 106 mmol/L (98-107); Estimated CRCL calculation 81 ml/min; Estimated Glomerular Filt Rate > 60; Glucose 99 mg/dL (65-110); Sodium 140 mmol/L (137-145)
[2023-10-22 13:08] LABS: Appearance Urine Cloudy (Clear); Bacteria Urine None Seen /hpf; Bilirubin Urine Negative (Negative); Color Urine Dark Yellow (Yellow); Glucose Urine UA Negative (Negative); Ketones Urine Trace mg/dL (Negative); Leukocyte Esterase Ur 2+ LEU/UL (Negative); Need Manual Microscopic Reviewed; Nitrate Urine Negative (Negative); Non Pathogenic Casts 0-2; Protein Urine Trace mg/dL (Negative); Specific Grav Ur 1.025 (1.001-1.035); Squamous Epithelial Cell Urine Occasional /hpf (Few); WBC Urine >100 /hpf; pH Urine 5.5 (5.0-9.0)
[2023-10-22 13:09] LABS: Add Urine Microscopic? YES
--- NOTE | 2023-10-22 15:10 | ED.DIZZY ---
HPI - Dizziness General Chief Complaint: Dizziness Stated Complaint: dizziness Time Seen by Provider: 10/22/23 14:26 Related Data Home Medications Medication Instructions Recorded Confirmed ergocalciferol (vitamin D2) 1,250 1,250 mcg PO 2XW 03/14/23 03/14/23 mcg (50,000 unit) capsule lisinopril 20 1 tablet PO DAILY 03/14/23 03/14/23 mg-hydrochlorothiazide 25 mg tablet omeprazole 20 mg capsule,delayed 20 mg PO HS 03/14/23 03/14/23 release rosuvastatin 20 mg tablet 20 mg PO HS 03/14/23 03/14/23 tirzepatide 7.5 mg/0.5 mL 7.5 mg subcut WEEKLY 03/14/23 03/14/23 subcutaneous pen injector (Kj) Allergies Allergy/AdvReac Type Severity Reaction Status Date / Time No Known Allergies Allergy Verified 10/22/23 10:03 [facility] Surgical History Surgical History (Updated 03/29/23 @ 13:50 by SAVANA Aleman) Hx laparoscopic cholecystectomy 03/19/23 Family History Family History Mother Family history of malignant neoplasm of breast in first degree relative Father Family history of heart disease in male family member before age 55 Sibling Patient's sister is in good health Social History Social History Smoking status: Never smoker Second hand tobacco smoke exposure: No Alcohol intake: current Drinks per week: 2 Alcohol use details: VERY RARE Substance use: never Substance use type: does not use Lack of Transportation: No Lack of Food: Never True Current Housing: I Have Housing Concerned About Future Housing: No Difficulty Paying Gas/Electric Bills: No Difficulty Paying for Meds: No Currently Unemployed: No Education: Decline to Answer Difficulty w/ Childcare or Family Care: No Living arrangements: with family Spiritual care concerns: No Course Vital Signs Vital signs: Vital Signs Temperature 97.3 F L 10/22/23 10:38 Pulse Rate 89 10/22/23 10:38 Respiratory Rate 20 10/22/23 10:38 Blood Pressure 127/74 10/22/23 10:38 Pulse Oximetry 100 10/22/23 10:38 Oxygen Delivery Room Air 01/29/24 10:38 Temperature 97.3 F L 10/22/23 10:38 Pulse Rate 71 10/22/23 14:46 Respiratory Rate 16 10/22/23 14:46 Blood Pressure 125/100 H 10/22/23 14:46 Pulse Oximetry 96 10/22/23 14:46 Oxygen Delivery Room Air 10/22/23 10:38 MDM - Dizziness Lab Data 10/22/23 12:44 10/22/23 12:44 Labs: Lab Results 10/22/23 10/22/23 Range/Units 12:44 14:42 WBC 5.9 (4.5-10.0) K/mm3 RBC 4.20 (4.2-5.4) M/mm3 Hgb 13.2 (12.0-15.0) g/dL Hct 40.0 (37.0-47.0) % MCV 95.2 (80-100) fl MCH 31.4 (26-34) pg MCHC 33.0 (32-36) g/dl RDW 13.1 (11.5-14.5) % Plt Count 169 (150-375) k/mm3 MPV 10.6 H (7.4-10.4) fl Immature Gran % (Auto) 0.3 (0-0.5) % Neut % (Auto) 64.9 (45.5-73.1) % Lymph % (Auto) 26.7 (18.3-44.2) % [place] % (Auto) 4.8 (2.6-8.5) % Eos % (Auto) 2.6 (0-4.4) % Baso % (Auto) 0.7 (0.2-1.2) % Lymph # (Auto) 1.56 (0.9-3.2) K/mm3 [place] # (Auto) 0.3 (0.1-0.6) K/mm3 Eos # (Auto) 0.2 (0-0.3) K/mm3 Baso # (Auto) 0.0 (0.0-0.1) K/mm3 Abs Immat Gran (auto) 0.02 (0.00-0.031) K/mm3 Absolute Neuts (auto) 3.8 (1.3-6.7) K/mm3 Absolute Nucleated RBC 0.0 (0.0-0.012) K/mm3 Nucleated RBC % 0.0 (0.0-0.2) % Sodium 140 (137-145) mmol/L Potassium 4.0 (3.4-5.0) mmol/L Chloride 106 (98-107) mmol/L Carbon Dioxide 26 (22-30) mmol/L Anion Gap 8 (8-16) mmol/L BUN 17 (7-17) mg/dL Creatinine 0.80 (0.7-1.0) mg/dL Estim Creat Clear Calc 81 ml/min Estimated GFR > 60 (59 - ) Glucose 99 (65-110) mg/dL Calcium 9.6 (8.4-10.2) mg/dL Total Bilirubin 0.6 (0.2-1.3) mg/dL AST 21 (14-36) U/L ALT 18 (6-35) U/L Alkaline Phosphatase 58 (38-126) U/L Total Protein 7.0 (6.3-8.2) g/dL Albumin 4
[2023-10-22] MEDS: SODIUM CHLORIDE 0.9% IV 1,000 ML 999 ML IV CONT (15:29)
[2023-10-22] MEDS: diazePAM (*CRX) 5 MG TABLET 2.5 MG PO (15:29)
[2023-10-22 15:34] LABS: Influenza A QL RT-PCR Negative (Negative); Influenza B QL RT-PCR Negative (Negative); RSV RNA, RT-PCR Negative (Negative); SARS-CoV-2 RNA PCR Negative (Negative)
[2023-10-22] MEDS: ACETAMINOPHEN 500 MG TABLET 1000 MG PO (15:49)
== END 2023-10-22 17:34 | disposition home or self-care (01) ==
PROVIDERS: Nurse Practitioner Family; Emergency Provider Emergency Medicine
DX: N39.0 Urinary tract infection, site not specified (principal); R42 Dizziness and giddiness; Z20.822 Contact with and (suspected) exposure to COVID-19
CPT/HCPCS: 36415; 70450; 80053; 81001; 85025; 87086; 87637; 93005; 96365; 96366; 96375; 99284; A9270; J0696; J2405; J7030